=== PATIENT | female | born 1970 | race Hispanic/Latino ===

== ENCOUNTER → 2019-09-17 | Outpatient (CLI) | payer MEDICARE ==
[~2019-09-17] MED LIST: AEC81 PO; ATOR40TA71 PO; FENO145T PO; INSU100C6 SQ; LINA5TAB PO; METO10TA3 PO; METO50TA9 PO; PARO-37 PO
== END | disposition home or self-care (01) ==
LOC: RAH 10:03
PROVIDERS: ATTEND Physical Medicine & Rehabilitation
DX: M47.22 Other spondylosis with radiculopathy, cervical region (principal); M54.2 Cervicalgia
CPT/HCPCS: 72052

== ENCOUNTER → 2021-06-30 | Outpatient (CLI) | payer MEDICARE ==
[2021-06-30 12:22] LABS: BASOPHILS % (AUTO) 0.6 % (0.0-5.0); HEMATOCRIT 33.2 % (36-48); LYMPHOCYTES % (AUTO) 27.7 % (21.0-51.0); MEAN CORPUSCULAR HEMOGLOBIN 28.7 pg (27.0-33.0); MEAN CORPUSCULAR HGB CONC 31.6 g/dL (32.0-36.0); MEAN CORPUSCULAR VOLUME 90.7 fL (79-99); MONOCYTES % (AUTO) 6.7 % (3.0-13.0); NEUTROPHILS % (AUTO) 61.6 % (40.0-77.0); PLATELET COUNT (AUTO) 320 K/uL (130-400); RED BLOOD CELL COUNT(AUTO) 3.66 MIL/uL (4.00-5.50); WHITE BLOOD COUNT (AUTO) 8.6 K/uL (4.8-10.8)
[2021-06-30 12:44] LABS: CREATININE 1.7 mg/dL (0.5-1.5); POTASSIUM 5.2 mmol/L (3.5-5.1); THYROID STIMULATING HORMONE 1.41 uIU/mL (0.36-3.74)
== END | disposition home or self-care (01) ==
LOC: LAB 09:16
PROVIDERS: ATTEND Student in an Organized Health Care Education/Training Program
DX: R06.02 Shortness of breath (principal); I10 Essential (primary) hypertension
CPT/HCPCS: 36415; 80048; 80061; 83735; 84443; 85025

== ENCOUNTER → 2021-08-09 | Outpatient (CLI) | payer MEDICARE ==
[~2021-08-09] VITALS: Ht 160 cm; Wt 106.6 kg
[~2021-08-09] MED LIST changes: +REGADENOSON 0.4 MG/5 ML PF SYG IVP SCH
== END | disposition home or self-care (01) ==
LOC: SHCH 08:31
PROVIDERS: ATTEND Student in an Organized Health Care Education/Training Program
DX: I11.0 Hypertensive heart disease with heart failure (principal); I50.40 Unspecified combined systolic (congestive) and diastolic (congestive) heart failure; R94.31 Abnormal electrocardiogram [ECG] [EKG]; E78.2 Mixed hyperlipidemia; E11.8 Type 2 diabetes mellitus with unspecified complications; Z86.73 Personal history of transient ischemic attack (TIA), and cerebral infarction without residual deficits
CPT/HCPCS: 78452; 93017; 96374; A9500 ×2; J2785

== ENCOUNTER → 2021-08-25 | Outpatient (CLI) | payer MEDICARE ==
[~2021-08-25] MED LIST changes: -REGADENOSON 0.4 MG/5 ML PF SYG IVP SCH
[2021-08-25 12:49] LABS: BASOPHILS % (AUTO) 0.7 % (0.0-5.0); EOSINOPHILS % (AUTO) 3.4 % (0.0-8.0); HEMATOCRIT 36.4 % (36-48); LYMPHOCYTES % (AUTO) 38.3 % (21.0-51.0); MEAN CORPUSCULAR HEMOGLOBIN 28.6 pg (27.0-33.0); MEAN CORPUSCULAR HGB CONC 32.1 g/dL (32.0-36.0); MONOCYTES % (AUTO) 7.5 % (3.0-13.0); NEUTROPHILS % (AUTO) 49.9 % (40.0-77.0); PLATELET COUNT (AUTO) 246 K/uL (130-400); RED BLOOD CELL COUNT(AUTO) 4.09 MIL/uL (4.00-5.50); RED CELL DISTRIBUTION WIDTH 13.5 % (11.0-15.5); WHITE BLOOD COUNT (AUTO) 8.3 K/uL (4.8-10.8)
[2021-08-25 12:57] LABS: ALBUMIN 3.3 g/dL (3.5-5.0); BILIRUBIN,TOTAL 0.3 mg/dL (0.2-1.0); CREATININE 2.3 mg/dL (0.5-1.5); MAGNESIUM 2.3 mg/dL (1.80-2.40); POTASSIUM 4.1 mmol/L (3.5-5.1); TOTAL PROTEIN, SERUM 7.9 g/dL (6.0-8.3)
== END | disposition home or self-care (01) ==
LOC: LAB 11:40
PROVIDERS: ATTEND Student in an Organized Health Care Education/Training Program
DX: I10 Essential (primary) hypertension (principal)
CPT/HCPCS: 36415; 80053; 83735; 85025

== ENCOUNTER → 2021-10-11 | Outpatient (CLI) | payer MEDICARE ==
[2021-10-11 12:31] LABS: BASOPHILS % (AUTO) 0.5 % (0.0-5.0); EOSINOPHILS % (AUTO) 2.2 % (0.0-8.0); HEMATOCRIT 34.1 % (36-48); LYMPHOCYTES % (AUTO) 33.7 % (21.0-51.0); MEAN CORPUSCULAR HEMOGLOBIN 29.1 pg (27.0-33.0); MEAN CORPUSCULAR HGB CONC 31.7 g/dL (32.0-36.0); MEAN CORPUSCULAR VOLUME 91.9 fL (79-99); MONOCYTES % (AUTO) 8.6 % (3.0-13.0); NEUTROPHILS % (AUTO) 54.7 % (40.0-77.0); PLATELET COUNT (AUTO) 257 K/uL (130-400); RED BLOOD CELL COUNT(AUTO) 3.71 MIL/uL (4.00-5.50); RED CELL DISTRIBUTION WIDTH 13.4 % (11.0-15.5)
[2021-10-11 12:39] LABS: HEMOGLOBIN A1C 10.3 % (4.0-6.0)
[2021-10-11 12:56] LABS: AMPHET/METH SCREEN,URINE NEGATIVE (NEGATIVE); BARBITURATE SCREEN, URINE NEGATIVE (NEGATIVE); BENZODIAZEPINES SCREEN,URINE NEGATIVE (NEGATIVE); CANNABINOID SCREEN,URINE NEGATIVE (NEGATIVE); COCAINE SCREEN,URINE NEGATIVE (NEGATIVE); PHENCYCLIDINE SCREEN,URINE NEGATIVE (NEGATIVE)
[2021-10-11 12:57] LABS: OPIATE SCREEN,URINE NEGATIVE (NEGATIVE)
[2021-10-11 14:08] LABS: ALANINE AMINOTRANSFERASE 34 U/L (12-78); ALBUMIN 3.4 g/dL (3.5-5.0); ASPARTATE AMINOTRANSFERASE 30 U/L (10-37); CARBON DIOXIDE 30 mmol/L (21-32); CHLORIDE 99 mmol/L (101-111); CREATININE 2.9 mg/dL (0.5-1.5); GLOMERULAR FILTR. RATE CALC 18 mL/min (>60); GLUCOSE,RANDOM 155 mg/dL (70-105); POTASSIUM 4.5 mmol/L (3.5-5.1); SODIUM SERUM 139 mmol/L (136-145); THYROID STIMULATING HORMONE 1.27 uIU/mL (0.36-3.74); UREA NITROGEN, BLOOD 66 mg/dL (7-18)
== END | disposition home or self-care (01) ==
LOC: LAB 11:04
PROVIDERS: ATTEND Student in an Organized Health Care Education/Training Program
DX: I10 Essential (primary) hypertension (principal); Z79.899 Other long term (current) drug therapy
CPT/HCPCS: 36415; 80053; 80305; 82607; 82652; 82746; 83036; 84443; 84681; 85025

== ENCOUNTER 2023-04-03 09:23 | Emergency (ER) | payer MEDICARE ==
[~2023-04-03] VITALS: Ht 160 cm; Wt 108.9 kg
[2023-04-03 09:58] LABS: HEMATOCRIT 37.2 % (36-48); MEAN CORPUSCULAR HEMOGLOBIN 29.8 pg (27.0-33.0); MEAN CORPUSCULAR HGB CONC 33.1 g/dL (32.0-36.0); MEAN CORPUSCULAR VOLUME 90.1 fL (79-99); RED BLOOD CELL COUNT(AUTO) 4.13 MIL/uL (4.00-5.50); RED CELL DISTRIBUTION WIDTH 13.6 % (11.0-15.5); WHITE BLOOD COUNT (AUTO) 10.2 K/uL (4.8-10.8)
[2023-04-03 10:07] LABS: POTASSIUM 3.8 mmol/L (3.5-5.1)
[2023-04-03] MEDS: 0.9%NACL 1000ML 1,000 ML IV ONE (10:12)
[2023-04-03 10:27] LABS: APPEARANCE,URINE CLOUDY (CLEAR); BILIRUBIN,URINE NEGATIVE (NEGATIVE); COLOR,URINE YELLOW (YELLOW); GLUCOSE, URINE (UA) 500 mg/dL (NEGATIVE); KETONES,URINE NEGATIVE (NEGATIVE); LEUKOCYTE ESTERASE ,URINE LARGE Leu/uL (NEGATIVE); NITRATE,URINE NEGATIVE (NEGATIVE); OCCULT BLOOD,URINE MODERATE (NEGATIVE); PROTEIN,URINE 30 mg/dL (NEGATIVE); UROBILINOGEN,URINE 0.2 mg/dL (0.2-1.0)
[2023-04-03 10:32] LABS: ADD UA MICROSCOPIC YES
[2023-04-03 10:48] LABS: BACTERIA,URINE Many /HPF (None Seen); RBC,URINE 0-1 /HPF (0-1); SQUAMOUS EPITHELIAL CELL,UR Rare /HPF (0-2); WBC,URINE TNTC /HPF (0-1)
[2023-04-03 12:41] VITALS: BP 143/80; PULSE 86; RESP 16; O2SAT 99
[2023-04-03] MEDS ORDERED: CEPH500T PO (13:00)
[2023-04-03] MEDS: CEFTRIAXONE 2GM VIAL IVPB ONE (13:05)
== END 2023-04-03 13:48 | disposition home or self-care (01) ==
LOC: EDH 09:23
DX: S40.021A Contusion of right upper arm, initial encounter (principal); S70.01XA Contusion of right hip, initial encounter; N39.0 Urinary tract infection, site not specified; E11.9 Type 2 diabetes mellitus without complications; E78.00 Pure hypercholesterolemia, unspecified; I11.0 Hypertensive heart disease with heart failure; I50.9 Heart failure, unspecified; Z79.82 Long term (current) use of aspirin; Z79.84 Long term (current) use of oral hypoglycemic drugs; Z79.899 Other long term (current) drug therapy; Z86.73 Personal history of transient ischemic attack (TIA), and cerebral infarction without residual deficits; Z88.1 Allergy status to other antibiotic agents; Z88.2 Allergy status to sulfonamides; Z88.5 Allergy status to narcotic agent; Z90.49 Acquired absence of other specified parts of digestive tract; Z90.710 Acquired absence of both cervix and uterus; W18.39XA Other fall on same level, initial encounter; Y93.89 Activity, other specified; Y92.89 Other specified places as the place of occurrence of the external cause; Y99.8 Other external cause status
CPT/HCPCS: 99285; 70450; 96365; 71045; 96361; 82550; 84484; 80048; 85027; 87077; 87088; 87186; 81001; 36415; 73080; 73502; 73030; 72125; 93005; J7030; J0696

== ENCOUNTER → 2023-11-10 | Outpatient (CLI) | payer MEDICARE ==
[~2023-11-10] MED LIST changes: +CEPH500T PO
[2023-11-10] MEDS: REGADENOSON 0.4 MG/5 ML PF SYG IVP ONE (14:47)
== END | disposition home or self-care (01) ==
LOC: SHCH 08:12
PROVIDERS: ATTEND Student in an Organized Health Care Education/Training Program
DX: R06.00 Dyspnea, unspecified (principal); I11.0 Hypertensive heart disease with heart failure; I50.40 Unspecified combined systolic (congestive) and diastolic (congestive) heart failure; E11.8 Type 2 diabetes mellitus with unspecified complications; R06.02 Shortness of breath; E78.5 Hyperlipidemia, unspecified; R94.31 Abnormal electrocardiogram [ECG] [EKG]; Z79.899 Other long term (current) drug therapy; Z86.73 Personal history of transient ischemic attack (TIA), and cerebral infarction without residual deficits
CPT/HCPCS: 78452; 93017; J2785; A9500 ×2

== ENCOUNTER → 2024-02-19 | Outpatient (CLI) | payer MEDICARE ==
[2024-02-19 12:32] LABS: CHOLESTEROL 116 mg/dL (<200); HDL CHOLESTEROL 35 mg/dL (35-85); LDL DIRECT 42 mg/dL (0-99); TRIGLYCERIDES 309 mg/dL (30-200)
== END | disposition home or self-care (01) ==
LOC: LAB 09:06
PROVIDERS: ATTEND Student in an Organized Health Care Education/Training Program
DX: I10 Essential (primary) hypertension (principal); E78.5 Hyperlipidemia, unspecified
CPT/HCPCS: 36415; 80061

== ENCOUNTER → 2024-05-01 | Outpatient (CLI) | payer MEDICARE ==
--- NOTE | 2024-05-01 10:58 | HMCIMG ---
MRI LEFT SHOULDER WITHOUT CONTRAST INDICATION: Left shoulder pain COMPARISON: None PARAMETERS: Long and short axis fat and water weighted sequences were obtained through the left shoulder. FINDINGS: Coalescent high signal abnormality within super spaces of airspace tendons at their insertion without tear. No rotator cuff muscle atrophy, fatty infiltration, or denervation myoedema noted. Mild anterolateral downsloping of a type I acromion contributes to mild lateral arch outlet narrowing. No symmetric and inferior acromial spurring. Acromioclavicular and glenohumeral alignments are well maintained without significant osteoarthropathy. Glenoid concavity is well preserved without "bare area" erosion. No evidence for labral tear. Small amount of fluid within the superior subscapular recess. Long head biceps tendon is intact, and not subluxed. Trace glenohumeral joint fluid detected. No abnormal soft tissue mass, ganglion, or paralabral cyst is present. No evidence for fracture. IMPRESSION: Perhaps mild external impingement-related coalescent insertional supraspinatus and infraspinous tendinopathy without tear. Small amount of fluid within superior subscapular recess, and trace glenohumeral joint fluid.
== END | disposition home or self-care (01) ==
LOC: RAH 08:25
PROVIDERS: ATTEND Physician Assistant
DX: M25.812 Other specified joint disorders, left shoulder (principal); M25.512 Pain in left shoulder
CPT/HCPCS: 73221

== ENCOUNTER → 2024-12-24 | Outpatient (CLI) | payer MEDICARE, MEDICAID ==
--- NOTE | 2024-12-26 06:30 | HMCIMG ---
EXAM: Nuclear Medicine Gastric Emptying Scan. INDICATION: Acid reflux with suspected gastroparesis. REFERENCE EXAMINATION: None. TECHNIQUE: 1.5 mCi of Tc99m sulfur colloid with 02 scrambled eggs. FINDINGS: Transit of radiopharmaceutical is seen from the stomach into the small bowel. 50% gastric emptying achieved in 76 minutes. IMPRESSION: Scintigraphic findings suggest normal gastric emptying. /[place]
== END | disposition home or self-care (01) ==
LOC: RAH 07:13
PROVIDERS: ATTEND Student in an Organized Health Care Education/Training Program
DX: K21.9 Gastro-esophageal reflux disease without esophagitis (principal); K31.84 Gastroparesis
CPT/HCPCS: 78264; A9541

== ENCOUNTER → 2024-12-26 | Outpatient (CLI) | payer MEDICARE, MEDICAID ==
--- NOTE | 2024-12-26 13:03 | HMCIMG ---
EXAM: US Abdomen complete with doppler evaluation. CLINICAL HISTORY: Cirrhosis. TECHNIQUE: Real-time ultrasound of the abdomen (complete) with image documentation. COMPARISON: CT scan of the abdomen and pelvis without contrast dated 12/09/2014. LIMITATIONS: Very limited examination due to patient's body habitus and overlying bowel gas. FINDINGS: LIVER: Increased in echotexture, suggestive of fatty infiltration. Liver measures 18.5 cm, appearing enlarged. Portal vein diameter measures 0.9 cm. It shows hepatopetal flow. The portal vein velocity measures 24 cm/sec. No evidence of portal venous thrombosis. The left hepatic vein measures 14 cm/sec. The middle hepatic vein shows 15 cm/sec. The right hepatic vein shows 28 cm/sec velocities. Hepatic artery measures 113 cm/sec peak systolic velocity while the resistive index measures 0.76. GALLBLADDER: Surgically absent. COMMON BILE DUCT: Measures 6 mm in size. PANCREAS: Unremarkable where visualized. The distal pancreas is obscured by overlying bowel gas. KIDNEYS: The right kidney measures 9.4 x 5.2 x 5 cm. The left kidney measures 10.5 x 4.3 x 5.3 cm. No hydronephrosis. SPLEEN: Measures 12 x 3.9 x 3.4 cm. The splenic vein does not show any thrombosis. Unremarkable flow. The splenic venous velocity measures 47 cm/sec. AORTA: Within normal limits. No aneurysm. IVC: Within normal limits as visualized. IMPRESSION: 1. Fatty infiltration of the liver with hepatomegaly. 2. No evidence of portal hypertension or portal venous thrombosis. 3. Cholecystectomy. 4. Several stable chronic and incidental findings are noted compared to the prior CT scan of the abdomen and pelvis without contrast dated December 09, 2014, as detailed in the body of the report. /[place]
== END | disposition home or self-care (01) ==
LOC: RAH 07:01
PROVIDERS: ATTEND Internal Medicine
DX: K76.0 Fatty (change of) liver, not elsewhere classified (principal); K74.60 Unspecified cirrhosis of liver; Z90.49 Acquired absence of other specified parts of digestive tract
CPT/HCPCS: 76700; 93975